=== PATIENT | male | born 1950 | race Caucasian/White ===

== ENCOUNTER 2019-04-18 16:25 | Inpatient (IN) | payer MEDICARE ==
[~2019-04-18] VITALS: Ht 172.7 cm; Wt 125.2 kg
[2019-04-18] MEDS ORDERED: TYLENOL325 MG PO (16:27)
[2019-04-18] MEDS ORDERED: AMLODIPINE BESY10 MG PO (16:28)
[2019-04-18] MEDS ORDERED: LIPITOR 20 MG T20 M1 PO (16:28)
[2019-04-18] MEDS ORDERED: B12INJ IM (16:29)
[2019-04-18] MEDS ORDERED: CARVEDILOL12.5 MG PO (16:29)
[2019-04-18] MEDS ORDERED: TRULICITY1.5 MG/0.5 SQ (16:30)
[2019-04-18] MEDS ORDERED: IRON325 PO (16:31)
[2019-04-18] MEDS ORDERED: LANTUS100 UNIT/M SUBQ (16:32)
[2019-04-18] MEDS ORDERED: HUMALOG100 UNIT/1 SUBQ (16:33)
[2019-04-18] MEDS ORDERED: MAGNESIUM CITRATE PO (16:50)
[2019-04-18] MEDS ORDERED: FISH OIL 1,001000 M2 PO (16:51)
[2019-04-18] MEDS ORDERED: MELATONIN3 MG PO (16:51)
[2019-04-18] MEDS ORDERED: MIRALAX17 GM PO (16:52)
[2019-04-18] MEDS ORDERED: VITAMIN D5000 UNIT PO (16:53)
[2019-04-18 18:53] VITALS: BP 157/79
[2019-04-18 19:30] VITALS: BP 157/67
[2019-04-18 19:30] LABS: URINE BILIRUBIN NEGATIVE (Negative); URINE BLOOD TRACE (Negative); URINE CLARITY CLEAR; URINE COLOR YELLOW; URINE GLUCOSE-RANDOM TRACE (Negative); URINE KETONES NEGATIVE (Negative); URINE LEUKOCYTES NEGATIVE (Negative); URINE NITRITE NEGATIVE (Negative); URINE PROTEIN 3+ (Negative); URINE SPECIFIC GRAVITY 1.025 (1.005-1.030); URINE UROBILINOGEN 0.2 E.U./dl (0.2-1.0)
[2019-04-18 19:43] LABS: BACTERIA 1-9 Few /HPF (None Seen); CASTS None Seen /LPF (None Seen); CRYSTALS None Seen /LPF (None Seen); SQUAMOUS 0-3 Few /LPF (0-3); URINE RBC 0-2 Rare /HPF (0-2); URINE WBC 0-5 Rare /HPF (0-5)
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
--- NOTE | 2019-04-19 04:02 | NUR ---
REFUSED LAB DRAW DESPITE EDUCATION FROM HELPER TEACHER.
--- NOTE | 2019-04-19 04:59 | NUR ---
PATIENT ATTEMPTING TO PUT ON SHOES IN ORDER TO EXIT. STATES FAMILY IS GOING TO COME GET HIM. THIS NURSE CALLED THE NUMBER FOR RUTHANN TWICE AND THERE WAS NO ANSWER. VM LEFT WITH MINIMAL DETAILS DUE TO HIPAA, BUT REQUESTED HIM TO CALL ME.
--- NOTE | 2019-04-19 05:09 | NUR ---
FURTHER ATTEMPTS AT CALLING RUTHANN AT [phone] RESULT IN ANSWERING MACHINE. SUPV NOTIFIED. SECURITY CALLED AND WILL VISIT WITH PATIENT. CURRENTLY THERE IS REVENUE CYCLE ADMINISTRATOR WITH PATIENT IN ROOM ASSURING SAFETY. UNTIL A FEW MINUTES AGO, PATIENT WAS RESTING IN RECLINER. NO APPARENT DISTRESS.
--- NOTE | 2019-04-19 05:13 | NUR ---
SECURITY HERE AND TALKING WITH PATIENT.
--- NOTE | 2019-04-19 05:21 | NUR ---
STILL NO ANSWER AT RUTHANN'S NUMBER. CALLED , NO ANSWER, LEFT VOICE MAIL. BOOK AGENT IN WITH PATIENT ALONG WITH SECURITY. PATIENT HAS SUCCESSFULLY PUT ON HIS SHOES. WANTS TO GO HOME. HAS BEEN CALLING FAMILY WHILE SECURITY IN ROOM, AND THEY HAVE NOT BEEN ANSWERING PATIENT'S PHONE CALLS. REFUSES TO ALLOW GAIT BELT. BEING DISRESPECTFUL TO NURSING AND POLICE/SECURITY. PATIENT NOT ORIENTED TO SURROUNDINGS. DOES NOT REMEMBER EARLIER EVENTS OF SHIFT INCLUDING MULTIPLE ATTEMTPS AT EDUCATING HIM ON REHAB ROUTINE AND SAFETY CONCERNS. BOOK AGENT REMAINS IN ROOM.
--- NOTE | 2019-04-19 05:30 | NUR ---
SECURITY LEFT ROOM. OFFICER BENJAMIN REPORTS THAT PATIENT REALIZES THAT NO FAMILY MEMBERS ARE ANSWERING PHONE, AND HE THEREFORE DOES NOT HAVE A RIDE HOME. CLOSE OBSERVATION CONTINUES. PATIENT CONTINUES TO MAKE PHONE CALLS AFTER SECURITY LEFT. CALL LITE IN REACH.
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
--- NOTE | 2019-04-19 06:45 | NUR ---
A FAMILY MEMBER CALLED NURSE STATION BECAUSE PATIENT LEFT VOICE MAIL THAT PATIENT WAS WALKING OUT OF THE HOSPITL. THIS FAMILY MEMBER WANTED TO CONFIRM THAT PATIENT WAS STILL IN HOSPITAL AND NOT WALKING OUT OF IT. THIS CONFIRMED TO FAMILY MEMBER. WHILE ON PHONE WITH HIM, TERA CALLED NURSE STATION. UPDATE GIVEN TO HER. HE HAS BEEN LEAVING ON HER PHONE WELL OTHER FAMILY MEMBER'S PHONES. SHE STATES SHE WILL BE COMING UP TODAY SOON SHE CAN GET READY. SHE STATES THAT NONI WILL BE COMING. HOWEVER, PATIENT'S HAD TROUBLE LISTING HER NAME AND NEEDED CUEING TO REMEMBER IT, SHE IS VERY UPSET. SHE STATES THAT SHE WILL NOT BE DRIVING, BUT NONI ([phone]) WILL BE DRIVING HER. PATIENT INFORMED THAT HIS WILL BE COMING. SECURITY CAME TO CHECK ON PATIENT. CLOSE SUPERVISION CONTINUES.
[2019-04-19 08:00] VITALS: BP 159/69
[2019-04-19 09:17] LABS: HEMATOCRIT 35.7 % (42.0-52.0); HEMOGLOBIN 12.2 gm/dL (14.0-18.0); MCHC 34.2 g/dL (28.0-37.0); MPV 9.9 fl. (7.2-11.1); RBC 4.2 mil/uL (4.50-6.00); RDW-CV 13.3 % (10.5-14.5); WBC 6.8 thou/uL (4.0-11.0)
[2019-04-19 09:31] LABS: CALCIUM 8.9 mg/dL (8.5-10.1); CREATININE 2.7 mg/dL (0.6-1.3)
--- NOTE | 2019-04-19 17:13 | NUR ---
ASSUMMED CARE OF PT AT 0730, PT ALERT, ORIENTED TO SELF AND DATE, PT STATING HE WANTS TO GO HOME, PT UNDER CLOSE OBSERVATION, ALARMS ON, HERE AT 0800, PT CALMED AFTER HER, NO FURTHER TALK ABOUT LEAVING, PT TOOK THE "IMPORTANT PILLS" BLOOD PRESSURE MEDS, INSULIN GIVEN WITHOUT PROBLEM, PT HAS COMPLAINED OF BACK PAIN, MEDICATED PER ORDER, LIDOCAINE PATCH APPLIED TO LOW BACK, DISCUSSED NIGHT BEHAVIOR WITH DR HERNANDEZ AND WILL ASK FAMILY IF THEY CAN GIVE 24/7 SUPERVSION WITH PT, AGREEABLE TO STAYING TONIGHT WITH PT, AND WILL HAVE FAMILY MEMBERS STAY WITH HIM TOMMORROW, PT NOT TRACKING WITH SOME INSTRUCTIONS AT TIMES, NEEDS CUEING, PT TRANSFERS WITH SBA/MIN ASSIST GB AND WALKER, AMBULATES TO BATHROOM TO VOID, TAKING FOOD AND FLUIDS WELL, PARTICPATED IN ALL THERAPIES, FAMILY STATES PT HAS TAKEN XANAX IN THE PAST, DR HERNANDEZ CALLED AND ORDER OBTAINED FOR XANAX PRN IF NEEDED. HOURLY ROUNDING COMPLETED, ASSESSMENT COMPLETE, WILL CONTINUE TO MONITOR.
[2019-04-19 19:30] VITALS: BP 167/78
--- NOTE | 2019-04-20 00:09 | NUR ---
ASSUMED CARE AT 1930. PATIENT RESTING IN RECLINER WITH LEGS DEPENDENT DESPITE EDUCATION. STATES PUTTING LEGS HURTS HIS HIPS. LIDOCAINE PATCH REMOVED AT HS. STAYING THE NIGHT AND SHE IS VERY HELPFUL IN CUEING THE PATIENT TO REMEMBER TO USE THE CALL LITE. SHE IS ALSO GOOD AT REMEMBERING WHEN HE LAST HAD PAIN MEDS. DR. HERNANDEZ CHANGED XANAX ORDER IN LIGHT OF RENAL CONCERNS, NOW Q12 HOURS. PATIENT INFORMED AND UNDERSTANDS. DID GO TO BED ABOUT 2300. TWO SIDE RAILS UP BECAUSE HE STATED HE FELT TRAPPED IN THE BED. ALSO TOLERATING FEET ON PILLOW TO OFFLOAD HEELS, FEET UNCOVERED FROM THE TOPSHEETS. REFUSED TO ALLOW THIS NURSE TO ASSESS HIS LEGS, HAS SWEAT PANTS AND GRIPPER SOCKS OVER THEM. TAKES PILLS ONE AT A TIME WITH WATER. IN MUCH, MUCH BETTER HUMOR THIS EVENING. 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 STATES HER TEJAS CHENEY WILL SPEND THE DAY WITH HIM. MEDICATED FOR BACK PAIN WITH APAP. ABLE TO GET BOTH LEGS INTO BED WITHOUT ASSIST. HOURLY ROUNDS CONTINUE. BED ALARM ON. CALL LITE IN REACH.
--- NOTE | 2019-04-20 06:18 | NUR ---
SLEPT ALL NIGHT EXCEPT TO VOID. WAS CONTINENT AND VOIDED PER TOILET TWICE. WAS INCONTINENT ONCE, NEEDING CHANGE OF CLOTHING, AND CHUX. PATIENT ABLE TO PUSH OFF PANTS/UNDERWEAR AND REMOVE WET SHIRT. HOWEVER, WOULD NOT COOPERATE WITH REQUEST TO SIT DOWN TO REMOVE PANTS, INSTEAD INSISTING JUST KICKING THEM OFF. THIS NURSE ASSISTED WITH THAT. SKIN CARE DONE BY PATIENT AND THIS NURSE DID POSTERIOR SKIN CARE FROM WHERE URINE WAS ON HIS BACK (HAD BEEN LYING ON HIS BACK) CLOTHES CHANGED, ASSISTED WITH GATHERING CLOTHES. RETURNED TO BED. LEGS REMAIN ELEVATED ON PILLOWS TO OFFLOAD HEELS. NO FURTHER C/O PAIN. REMAINS SPENDING THE NIGHT. HOURLY ROUNDS CONTINUE. BED ALARM ON. CALL LITE IN REACH.
[2019-04-20 08:00] VITALS: BP 168/92
[2019-04-20 09:08] LABS: ABSOLUTE EOSINOPHILS 0.2 thou/uL (0.0-0.7); ABSOLUTE LYMPHOCYTES 1.4 thou/uL (0.8-5.3); ABSOLUTE MONOCYTES 0.6 thou/uL (0.0-1.2); ABSOLUTE NEUTROPHILS 4.5 thou/uL (1.6-8.1); BASOPHILS 0.5 %; EOSINOPHILS 2.3 %; LYMPHOCYTES 21.2 %; MCHC 34.2 g/dL (28.0-37.0); MCV 84.8 fL (80.0-100.0); MONOCYTES 8.4 %; MPV 9.4 fl. (7.2-11.1); NUCLEATED RBCS 0 /100WBC; PLATELET COUNT* 183 thou/uL (150-400); POLYS 67.6 %; RBC 4.13 mil/uL (4.50-6.00); RDW-CV 13.1 % (10.5-14.5); WBC 6.7 thou/uL (4.0-11.0)
[2019-04-20 09:14] LABS: CALCIUM 8.7 mg/dL (8.5-10.1); CREATININE 2.7 mg/dL (0.6-1.3); POTASSIUM 4.5 mmol/L (3.5-5.1)
--- NOTE | 2019-04-20 17:10 | NUR ---
ASSUMMED CARE OF PT AT 0730, PT TRANSFERS WITH SBA/MIN ASSIST , GB WALKER AND FREQUENT CUEING, PT COMPLAINS OF BACK AND LEG PAIN BUT DENIES NEED FOR PAIN MEDICATION, LIDOCAINE PATCH APPLIED TO LOW BACK, TAKING FOOD AND FLUIDS WELL, PT AMBULATES TO BATHROOM TO VOID, HAS SLOW SHUFFLING GAIT, BILATERAL LOWER EXTREMITIES SWOLLEN, RED, THICK SCALY SKIN, 2 OPEN AREAS NOTED ON LEGS, LARGER ONE TO LEFT LEG BELOW KNEE AND SMALLER OPEN AREA ON RIGHT LEG BELOW KNEE, LEGS TENDER TO TOUCH, BROUGHT IN A MOISTURIZER SPRAY, APPLIED TO LOWER EXTREMITIES, FEET SWOLLEN, LEGS ELEVATED ON PILLOWS IN RECLINER, PT COOPERATIVE ALL SHIFT, FAMILY HERE AND WILL STAY TONIGHT, HOURLY ROUNDING COMPLETED, ASSESSMENT COMPLETE WILL CONTINUE TO MONITOR.
[2019-04-20 19:00] VITALS: BP 143/60
--- NOTE | 2019-04-20 23:00 | NUR ---
ASSUMED CARE AT 1930. PATIENT RESTING IN RECLINER WITH LEGS UP SOME OF THE TIME. UP WITH SBA, CUEING, EXTRA TIME, GAIT BELT, WALKER. TAKES SMALL STEPS. WEARING BRIEF, VOIDING PER TOILET. CHANGED OUT OF STREET CLOTHES FOR HS, WEARING GOWN AND BRIEF. DOES HAVE TROUBLE ROLLING TO SIDE AND LYING > SITTING POSITION WHILE IN BED, NEEDS EXTRA TIME. TOOK PILLS WITHOUT DIFF. COOPERATIVE AND CONVERSIVE, A/O X4. MEDICATED FOR PAIN AT . DISCUSSED HOW LONG IT WOULD HAVE TAKEN FOR THE GABAPENTIN AND OTHER MEDICINES GIVEN AT [facility] TO CLEAR SYSTEM BASED ON POOR RENAL FUNCTION AND THE HALF LIFE OF THE MEDS. VERBALIZED UNDERSTANDING. HOURLY ROUNDS CONTINUE. BED ALARM ON. CALL LITE IN REACH.
--- NOTE | 2019-04-21 05:23 | NUR ---
SLEPT MOST OF THE NIGHT. SPENT SOME TIME IN BED, BUT MOST OF THE NIGHT THE RECLINER. REFUSES TO HAVE LEGS ELEVATED WHILE IN RECLINER DESPITE EDUCATION THAT HIS CIRCULATION/VENOUS STASIS DERMATITIS WOULD IMPROVED WITH ELEVATION. STATES ELEVATING LEGS MAKES HIPS AND BACK HURT. SPENT THE NIGHT. PATIENT COOPERATIVE. DOES NEED REASSURANCE AT TIMES, HELPFUL WITH THAT. HOURLY ROUNDS CONTINUE. BED ALARM ON. CALL LITE IN REACH.
[2019-04-21 05:39] LABS: HEMATOCRIT 33.8 % (42.0-52.0); HEMOGLOBIN 11.5 gm/dL (14.0-18.0)
[2019-04-21 05:51] LABS: ALBUMIN 2.9 g/dL (3.4-5.0); CREATININE 2.6 mg/dL (0.6-1.3); PHOSPHORUS* 4.3 mg/dL (2.5-4.9); POTASSIUM 4.5 mmol/L (3.5-5.1)
--- NOTE | 2019-04-21 06:57 | NUR ---
HAS SPENT THE NIGHT, BUT SHE IS LEAVING AROUND 0700. SHE PLANS ON SPENDING THE NIGHTS WITH THE PATIENT TO HELP WITH HIS BEHAVIOR.
[2019-04-21 08:30] VITALS: BP 153/72
--- NOTE | 2019-04-21 11:06 | NUR ---
Nutrition: Pt admitted to rehab with bilat peripheral edema. Wt: 270#. CHO controlled diet ordered, eating 75%. BG 146-200s, alb 2.9, BUN 36, cr 2.6. RX: fish oil, insulin, B12, Fe. GOALS: better BG control with insulin. No other nutrition interventions today. Will follow weekly. Mild risk.
--- NOTE | 2019-04-21 15:10 | NUR ---
ASSUMED CARE AT 0730. ALERT TO SELF BUT IRRITABLE WITH SPOUSE AT TIMES. FORGETFUL ALSO. HX OF BILATERAL PERIPHERAL NEUROPATHY AND DERMATITIS LOWER EXTREMETIES. TRANSFERS WITH SBA G BELT WALKER AMBULATES WITH SLOW GAIT TO BR WEARS PULLUPS FOR INCONTINENCE. ABLE TO FEED SELF AND TAKES MEDS WITHOUT DIFFICULTY. REFUSED VITAMIN B 12 IM WILL ASK FOR PO B12. PT. WAS IRRITABLE MORE THIS A.M. WITH , ADMINISTERED ALPRAZALOAM PO AT 0917. PT. HAS BEEN COOPERATIVE WITH STAFF AND THERAPIES TODAY. BED CHAIR ALARM ON FOR PT. SAFETY. IS HERE AND ANOTHER FEMALE WHO IS A WRIST CLOSER AT ANOTHER FACILITY. DID C/O PAIN LOW BACK WHEN IN RECLINER PILLOW PLACED BEHIND HIM. TRAMADOL PO GIVEN FOR PAIN WITH SOME RELIEF STATED.
--- NOTE | 2019-04-21 17:35 | NUR ---
SW met with pt and pt son's girlfriend to complete initial assessment, introduce self, and SW role. Pt lives at home with . Possible preference for [facility] at dc if pt/pt agree as pt son's girlfriend knowledgeable and works with [facility] services. Pt discussed difficulty with pt understanding of inpt rehab and agreeing and complying with continuing to remain on ARU. Nurses' notes describe pt interactions with trying to leave unit to go home. Pt said that she would try to stay with pt when she could and she brought pt dog to visit pt today. Pt unsure of pt dc needs at this time but very receptive to any resources and/or assistance. SW to continue to follow to assist with safe dc planning.
--- NOTE | 2019-04-21 18:10 | NUR ---
WOUND NURSE: PATIENT SEEN FOR PERIPHERAL EDEMA 2ND TO VENOUS INSUFFICIENCY AND LYMPHEDEMA. PATIENT HAS 2 PRIMARY WOUNDS ON THE LLE: 1.8 X 2.5 X 0.1 CM. PRESENTS A SHALLOW PARTIAL THICKNESS LESION DRAINING SEROUS DRAINAGE. RLE WOUND MEASURES 0.5 X 0.5 X 0.2 CM AND PESENTS A PARTIAL THICKNESS LESION CONTAINING PINK TISSUE AND SEROUS DRAINAGE. LEGS HAVE 3 TO 4 PLUS EDEMA AND ARE REDDENED WITH HYPERPIGMENTATION AND LIPODERMATOSCLOROSIS. PEDAL PULSES ARE PALPABLE. ATTEMPTED YOLIS'S TO BLE, BUT PATIENT IS NONCOMPRESSIBLE. CAPILLARY REFILL IS <3 SECONDS AND TOES ARE WARM AND PINK. CLEANSED WITH SOAP AND WATER, RINSED WITH WATER, THEN PATTED DRY. APPLIED MOISTURIZING LOTION TO INTACT SKIN, THEN APPLIED XEROFORM GAUZE UNDER ABD TO WOUNDS, THEN WRAPPED WITH MEDLINE 4 LAYER COMPRESSION WRAP BLE.
--- NOTE | 2019-04-21 19:55 | NUR ---
SITTING UP IN RECLINER WITH LEGS ELEVATED WATCHING TV. STAYS WITH PATIENT. DENIES DISCOMFORT. TOOK MEDICATIONS WHOLE ONE AT A TIME WITH WATER.
[2019-04-21 20:40] VITALS: BP 145/71
--- NOTE | 2019-04-22 05:41 | NUR ---
RESTED IN BED FROM ABOUT 2345 TO 0450 THEN DECIDED TO SIT IN THE RECLINER WITH LEGS ELEVATED. UP SEVERAL TIMES DURING THE NIGHT TO VOID. STANDS AT THE TOILET TO VOID. ABLE TO PULL PULL UPS AND PANTS UP AND DOWN. INCONTINENT AT TIMES. HOURLY ROUNDING IN PROGRESS.
[2019-04-22 08:00] VITALS: BP 153/69
--- NOTE | 2019-04-22 15:56 | NUR ---
ASSUMMED CARE OF PT AT 0730, PT ALERT, CONFUSION AND FORGETFUL, TRANSFERS WITH ASSIST OF 1, GB WALKER, CUEING, AMBULATES TO BATHROOM TO VOID,UA SENT TO LAB, PASSING FLATUS, NO BM, PT DID AGREE TO TAKE STOOL SOFTENER THIS AM BUT FEARFUL HE WILL HAVE DIARHEA, PT AMBULATED TO DININGROOM FOR LUNCH, TAKING FOOD AND FLUIDS WELL, STATES ONLY HAS MINIMAL PAIN IN LOW BACK, DENIED NEED FOR PAIN MEDICATION, LIDOCAINE PATCH APPLIED, PARTICIPATED IN ALL THERAPIES, HOURLY ROUNDING COMPLETED, ASSESSMENT COMPLETE, WILL CONTINUE TO MONITOR.
[2019-04-22 17:13] LABS: URINE BILIRUBIN NEGATIVE (Negative); URINE BLOOD TRACE (Negative); URINE CLARITY CLEAR; URINE COLOR YELLOW; URINE GLUCOSE-RANDOM TRACE (Negative); URINE KETONES NEGATIVE (Negative); URINE LEUKOCYTES NEGATIVE (Negative); URINE NITRITE NEGATIVE (Negative); URINE PROTEIN 3+ (Negative); URINE UROBILINOGEN 0.2 E.U./dl (0.2-1.0)
[2019-04-22 17:30] LABS: HYALINE CASTS 0-3 Few /LPF (None Seen); SQUAMOUS NONE SEEN /LPF (0-3)
[2019-04-22 17:31] LABS: CRYSTALS None Seen /LPF (None Seen); MUCUS None Seen strn/LPF (None Seen); URINE RBC 0-2 Rare /HPF (0-2)
[2019-04-22 17:32] LABS: BACTERIA None Seen /HPF (None Seen); URINE WBC None Seen /HPF (0-5)
[2019-04-22 19:30] VITALS: BP 136/60
--- NOTE | 2019-04-22 20:30 | NUR ---
ASLEEP IN RECLINER WITH LEGS ELEVATED. AWAKENED FOR HS REASSESSMENT AND MEDICATION PASS. TOOK MEDS WHOLE ONE AT A TIME WITH WATER. DENIES DISCOMFORT.
--- NOTE | 2019-04-23 04:48 | NUR ---
RESTED ON/OFF. UP OFTEN TO THE TOILET TO VOID. WENT TO BED ABOUT 2230 BUT WAS UNABLE TO GET COMFORTABLE SO SPENT THE NIGHT IN THE RECLINER WITH LEGS ELEVATED. SLEPT ON FOLD OUT COUCH. GAVE TYLENOL PER CHOICE FOR COMPLAINT OF PAIN IN HIS FEET WITH RELIEF. HOURLY ROUNDING IN PROGRESS.
[2019-04-23 08:34] LABS: CALCIUM 8.7 mg/dL (8.5-10.1); CREATININE 2.6 mg/dL (0.6-1.3); POTASSIUM 4.4 mmol/L (3.5-5.1)
[2019-04-23 08:41] VITALS: BP 169/84
--- NOTE | 2019-04-23 15:05 | NUR ---
ABBI and Dr Mccoy met with pt and pt to review team conference summary and plan for pt to remain on rehab unit with pt to continue therapies and team to reassess pt length of stay during team conference next Sunday. Pt and pt okay with plan. SW to continue to follow to assist with safe dc planning.
--- NOTE | 2019-04-23 16:41 | NUR ---
PATIENT ALERT AND ORIENTED X 4. SOME CONFUSION AT TIMES. WOUND CARE HERE AND CHANGED LE DRESSINGS FOR CELLULITIS. UP WITH GAITBELT AND WALKER. SOME LEG PAIN. TYLENOL EARLIER IN SHIFT. NO FURTHER COMPLAINTS OF PAIN OR DISCOMFORT. CONT. WITH PLAN OF CARE.
--- NOTE | 2019-04-23 16:45 | NUR ---
WOUND NURSE- PATIENT SITTING UP IN RECLINER, HAS COMPLETED THERAPY FOR THE DAY. AT BEDSIDE, VERY SUPPORTIVE. PATIENT ALERT BUT VERY FORGETFUL, KEEPS ASKING SAME QUESTIONS. ATTEMPTED TO EXPLAIN VENOUS INSUFFICIENCY AND ONGOING MANAGEMENT, WITH SOME APPARENT COMPREHENSION. RIGHT FOOT 24.5 CM, ANKLE 25.5 CM & CALF 44.5 CM. LEFT FOOT 24 CM, ANKLE 26 CM & CALF 43 CM. BOTH LEGS CLEANSED WELL WITH SKIN CLEANSER & WATER IN BASINS OF WATER AT FEET, REMOVING LARGE AMOUNT OF LOOSELY ADHERENT DRY SKIN WITH CLEANSING. SMALL OPEN AREAS ON RIGHT LATERAL CALF 0.5 X 0.5 X 0.1 CM AND LEFT MEDIAL CALF, 3 X 0.6 X 0.1 CM. BOTH AREAS PINK, MOIST AND HEALING WELL, WITH NO SIGNS OF INFECTION. OPEN AREAS COVERED WITH XEROFORM GAUZE, AND 4 LAYER COMPRESSION WRAPS REAPPLIED. INSTRUCTED PATIENT AND THAT IF THE WRAPS WOULD START TO FEEL TIGHT, HE NEEDS TO RECLINE IN BED WITH BOTH LEGS ELEVATED ON 2 PILLOWS. IF UNRELIVED, OR TOES BECOME COOL, BLUE OR NUMB/TINGLING, NOTIFY NURSE TO REMOVE WRAPS. THEY VERBALIZE UNDERSTANDING.
[2019-04-23 19:00] VITALS: BP 150/64
--- NOTE | 2019-04-24 00:50 | NUR ---
ASSUMED CARE @ .SITS IN RECLINER W/ LE'S UP.CLOVER WRAP LE'S INTACT. DOG VISITING @ THIS TIME. STAYING ALL NIGHT.CHAIR ALARM ON ALREADY @ .IS STARTED @ 2124.SBA FOR ALL TRANSFERS & TOILETING.ASSISTED TO BED @ 2319.BED ALARM PUT ON @ 2319.WANTS ONLY SIDERAILS X2 UP.WANTS LIGHT ON BATHROOM ALL NIGHT.WEARS PULL UPS.ON HOURLY ROUNDS.TURNING SANDER OPERATOR DOING ODD HOUR ROUNDS. WANTS TO SIT IN RECLINER @ 0030 W/ LE'S UP.ASSISTED BY TURNING SANDER OPERATOR.
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
[2019-04-24 08:00] VITALS: BP 147/69
--- NOTE | 2019-04-24 13:57 | NUR ---
PATIENT ALERT AND ORIENTED X 4, FORGETFUL AT TIMES. PARTICIPATING IN THERAPY. REQUESTED TRAMADOL FOR LEG PAIN. SBA WITH GAITBELT AND ROLLING WALKER. NO FURTHER COMPLAINTS. CONT. WITH CURRENT PLAN OF CARE.
[2019-04-24 20:05] VITALS: BP 166/83
--- NOTE | 2019-04-24 20:05 | NUR ---
SITTING UP IN RECLINER WATCHING TV. DENIES DISCOMFORT. IN ROOM WITH PATIENT AND WILL BE STAYING THE NIGHT ON A COT. CALL LIGHT WITHIN REACH.
[2019-04-25 04:57] LABS: CALCIUM 8.9 mg/dL (8.5-10.1); CREATININE 2.5 mg/dL (0.6-1.3); POTASSIUM 4.4 mmol/L (3.5-5.1)
--- NOTE | 2019-04-25 05:03 | NUR ---
UP X 3 DURING THE NIGHT TO VOID. AMBULATES TO THE BATHROOM WITH SBA, GAITBELT, WALKER. GAVE TYLENOL FOR COMPLAINT OF PAIN IN HIS FEET WITH RELIEF. TRIED TO SLEEP IN THE BED BUT COULDN'T GET COMFORTABLE SO SLEPT MOST OF THE NIGHT IN THE RECLINER. HOURLY ROUNDING IN PROGRESS.
[2019-04-25 07:45] VITALS: BP 156/70
--- NOTE | 2019-04-25 13:54 | NUR ---
ASSUMED CARE AT 0730. ALERT ORIENTED PLEASANT COOPERATIVE. HX OF BILATERAL PERIPHERAL EDEMA AND DERMATITS. WEARING BILATERAL COMPRESSION WRAPS TO LOWER EXTREMETIES. TRANSFERS WITH SBA G BELT WALKER AND AMBULATES TO BR TO VOID AND ALSO TO DR FOR MEALS. USES CALL LIGHT APPROPRIATELY FOR ASSISTANCE. CHAIR ALARM FOR PT. SAFETY. HERE WITH PT. DENIES NEED FOR LIDODERM PATCH FOR PAIN, HAD AN ULTRAM AT 0700. HAS BEEN A LITTLE SLEEPY AFTER ULTRAM. FEEDS SELF AND TAKES MEDS ONE AT A TIME WITHOUT DIFFICULTY. PARTCIPATING IN THERAPIES THROUGHOUT THE DAY. WOUND NURSE HERE TO CHANGE COMPRESSION WRAPS THIS AFTERNOON. SITTING UP IN RECLINER WITH LEGS ELEVATED WHEN NOT IN THERAPIES.
--- NOTE | 2019-04-25 14:33 | NUR ---
WOUND NURSE: PATIENT SEEN FOR BLE REWRAP FOR EDEMA CONTROL. REMOVED DRESSINGS AND CLEANSED WITH SOAP AND WATER, RINSED WITH WATER, THEN PATTED DRY. APPLIED MOISTURIZING LOTION TO INTACT SKIN TOES TO KNEE. APPLIED XEROFORM GAUZE TO ANY OPEN AREAS 1 ON RIGHT AND 2 ON LEFT LE. COVERED WITH ABD, THEN WRAPPED WITH MEDLINE 4 LAYER COMPRESSION WRAPS TOES TO KNEE. PATIENT WITH SMALL PATCH OF SKIN ON PROXIMAL ANTERIOR LEG MEASURING 3.5 X 4.0 X 0.1 CM. THIS CONTAINS >90% SKIN AND < 10% SUPERFICIAL RUPTURED BLISTERED AREA. THERE IS A SMALL AMOUNT OF SEROUS DRAINAGE, NO REDNESS, WARMTH OR INDURATION. THERE IS ANOTHER WOUND ON THE LEFT ANTEROLATERAL PROXMAL LEG WHICH MEASURES 0.3 X 0.3 X 0.1 CM AND CONTAINS PINK NONGRANULATING TISSUE. THERE IS A 2ND ONE ON THE LEFT LEG AT PROXIMAL ANTEROMEDIAL ASPECT AND MEASURES 1.5 X 1.5 X 0.1 CM. THIS ALSO CONTAINS PINK TISSUE BUT SLIGHTLY GRANULATED IN APPEARANCE. PATIENT IS WITHOUT COMPLAINTS OF PAIN OR DISCOMFORT AND PEDAL PULSE ARE PALPABLE. REINFORCED THE IMPORTANCE OF FOLLOW UP IN LYMPHEDEMA CLINIC OR FOR LONG-TERM MANAGEMENT OF PERIPHERAL EDEMA.
[2019-04-25 20:05] VITALS: BP 173/83
[2019-04-25 22:35] VITALS: BP 151/67
--- NOTE | 2019-04-26 01:40 | NUR ---
ASSUMED CARE @ 1946-04/25-SUNDAY.SITS IN RECLINER W/ LE'S UP WATCHING TV W/ .CHAIR ALARM ALREADY ON @ 1946. COMPRESSION WRAPS ON LE'S IN PLACE. WEARS PULL UPS.BP @ 2004-/83.NEW MED CARDURA 2 MG ORAL STARTED @ HS. EDEMA-TOES MILLI. 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
[2019-04-26 04:50] LABS: HEMATOCRIT 29.5 % (42.0-52.0); HEMOGLOBIN 9.8 gm/dL (14.0-18.0); MCH 28.4 pg (26.0-34.0); MCHC 33.4 g/dL (28.0-37.0); MCV 85.3 fL (80.0-100.0); MPV 9.8 fl. (7.2-11.1); RBC 3.46 mil/uL (4.50-6.00); RDW-CV 13.5 % (10.5-14.5); WBC 5.5 thou/uL (4.0-11.0)
[2019-04-26 05:10] LABS: CALCIUM 8.7 mg/dL (8.5-10.1); CREATININE 2.5 mg/dL (0.6-1.3); POTASSIUM 4.6 mmol/L (3.5-5.1)
--- NOTE | 2019-04-26 05:49 | NUR ---
SLEEPING SINCE -04/26-SAT TILL 0130,FROM 0200 TO 0400 & FROM 0500.DID NOT SLEEP IN BED @ ALL.BRP W/ SBA X5.PULL UPS CHANGED @ 0420.SEE 2ND PAIN MANAGEMENT @ 0440.TOOK POPCORN & H20 HS SNACKS.
[2019-04-26 10:34] VITALS: BP 149/71
--- NOTE | 2019-04-26 13:48 | NUR ---
PATIENT ALERT AND ORIENTED X 4, WITH CONFUSION AND FORGETFULNESS. SPENDS MOST OF THE TIME WITH PATIENT. IT IS NOTED THAT WHEN LEAVES FOR A SHORT PERIOD OF TIME, PATIENT BECOMES MORE CONFUSED. PATIENT AMBULATING WITH THERAPY WITHOUT THE WALKER, BUT IS TO USE WITH NURSING. PATIENT FREQUENTLY FORGETS WALKER OR TO ASK FOR HELP WITH AMBULATION. WILL CONT. TO MONITOR. IS HERE NOW. PATIENT HAD A MEDIUM BM THIS AM.
[2019-04-26 19:45] VITALS: BP 154/75
--- NOTE | 2019-04-27 01:41 | NUR ---
ASSUMED CARE @ 1939-04/26-SAT.SITS IN RECLINER W/ LE'S UP.PATIENT & BOTH WATCHING TV. STAYING ALL NIGHT.CHAIR ALARM ON @ 1939.COMPRESSION WRAPS LE'S INTACT.WEARS PULL UPS.SEE PAIN MANAGEMENT @ 2125.REBEL CARE DONE X1.ON HOURLY ROUNDS.
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
--- NOTE | 2019-04-27 05:33 | NUR ---
NURSE'S NOTES ENTERED @ 4873-ARE END OF SHIFT PROGRESS NOTES.
[2019-04-27 07:35] VITALS: BP 145/73
--- NOTE | 2019-04-27 13:03 | NUR ---
PATIENT ALERT AND ORIENTED X 3, WITH SOME CONFUSION AT TIMES. FORGETFUL. AT BEDSIDE. PATIENT AMBULATES WITH ROLLING WALKER, SBA. DENIES COMPLAINTS OF PAIN OR DISCOMFORT. NO SIGN OF DISTRESS. CONT. WITH CURRENT PLAN OF CARE AT THIS TIME.
[2019-04-27 20:35] VITALS: BP 164/77
--- NOTE | 2019-04-28 00:15 | NUR ---
ASSUMED CARE @ 1919-04/27-SUNDAY.SITS IN RECLINER W/ LE'S UP.CHAIR ALARM ALREADY ON @ 1919.VISITING W/ FRIENDS @ THIS TIME.SEE PAIN MANAGEMENT @ 2058.C/O NASAL CONGESTION.CALLED DR HERNANDEZ @ 2041 & GAVE ORDER FOR PRN FLONASE NASAL SPRAY.FLONASE NASAL SPRAY GIVEN ONE SPRAY EACH NOSTRIL @ 2143. STAYING ALL NIGHT.WANTS TO GO TO BED @ 2214 & ASSISTED.CALLED @ 2246 TO PRACTICE HOW TO GET UP FROM BED X2.BED ALARM PUT ON @ 2214.EACH LE UP ON A PILLOW WHILE IN BED.SIDERAILS X2 UP WHILE IN BED-UPPER SIDERAILS ONLY.APPEARS SLEEPING IN BED @ -04/28-SUNDAY.ON HOURLY ROUNDS.
--- NOTE | 2019-04-28 05:34 | NUR ---
REFUSED HS SNACK.PER -PATIENT ATE PIZZA @ DINNER & DOES NOT NEED HS SNACKS.BRP W/ SBA X 8 DURING NIGHT.URINE ACCIDENT X1.WET SMALL AREA FRONT SHIRT LOWER PART W/ URINE BUT REFUSED TO CHANGE SHIRT.WEARS PULL UPS.ASSISTED TO BED @ 0000-04/28-SUNDAY.STAYED IN BED X 0NLY 50 MINUTES.THEN SAT IN RECLINER W/ LE'S UP.OFFERED BLADDER SCAN @ 0215 BUT REFUSED IT.SLEPT X 30 MINUTES FROM 0000 TO 0030,FROM 0335 TO 0445 & FROM 0500.
[2019-04-28 07:45] VITALS: BP 153/78
--- NOTE | 2019-04-28 13:13 | NUR ---
ASSUMED CARE AT 0730. ALERT ORIENTED PLEASANT COOPERATIVE. HX OF BILATERAL PERIPHERAL EDEMA AND DERMATITS. WEARS BILATERAL COMPRESSION WRAPS TO LOWER EXTREMETIES. TRANSFERS WITH SBA G BELT WALKER AND AMBULATES TO BR TO VOID AND IS ABLE TO DO HYGEINE AND CLOTHING ADJUSTMENTS. USES CALL LIGHT APPROPRIATELY FOR ASSISTANCE. FEEDS SELF AND TAKES MEDS WITHOUT DIFFICULTY APPETITE GOOD. PARTICIPATING IN THERAPIES THROUGHOUT THE DAY. DENIES NEED FOR PAIN MED. SITTING IN RECLINER WITH BLES ELEVATED.
[2019-04-28 20:00] VITALS: BP 174/74
--- NOTE | 2019-04-28 20:03 | NUR ---
WOUND NURSE: WOUNDS ARE HEALED. LEGS CLEANSED WITH SOAP AND WATER, RINSED, THEN PATTED DRY. APPLIED LOTION TO INTACT SKIN, THEN WRAPPED BLE WITH 4 LAYER COMPRESSION WRAPS FOR EDEMA CONTROL. THIS WAS TOLERATED WELL FOR THE PATIENT. PLAN TO HAVE WOUND NURSE HERE WED TO OBTAIN LEG MEASUREMENTS FOR COMPREFLEX LITES AND GIVE TO SO SHE CAN OBTAIN THEM. WILL D/C COMPRESSION WRAPS ONCE THESE ARE AVAILABLE.
--- NOTE | 2019-04-28 20:05 | NUR ---
AMEYA, WOUND CARE NURSE JUST FINISHED PUTTING NEW COMPRESSION WRAPPINGS ON LEGS. PATIENT AMBULATED TO THE BATHROOM WITH SBA, GAITBELT, WALKER. STANDS AT THE TOILET TO VOID. TOOK MEDICATIONS WHOLE ONE AT A TIME WITH WATER. CALL LIGHT WITHIN REACH. LAYING IN PATIENT'S BED WATCHING TV. PATIENT SITS UP IN THE RECLINER WITH LEGS ELEVATED.
--- NOTE | 2019-04-29 05:17 | NUR ---
UP X 4 DURING THE NIGHT TO THE BATHROOM TO VOID. GAVE ULTRAM AT 2222 PER REQUEST FOR COMPLAINT OF BACK PAIN WITH RELIEF. SLEPT IN RECLINER ALL NIGHT WITH LEGS ELEVATED. SLEPT ON A COT NEXT TO THE RECLINER. HOURLY ROUNDING IN PROGRESS.
[2019-04-29 07:35] VITALS: BP 171/80
--- NOTE | 2019-04-29 11:37 | NUR ---
SW met with pt in preparation for team conference tomorrow. Pt hopeful to be able to dc home soon. SW called pt to follow up about dc planning and to discuss any questions or comments; pt did not answer so SW left a detailed message to request a call back if needed in further preparation for team conference tomorrow. SW to continue to follow to assist with safe dc planning.
--- NOTE | 2019-04-29 13:01 | NUR ---
WOUND CARE:SPOKE TO PTS NURSE TODAY TO INFORM HER WOUND CARE WOULD CHANGE DRESSINGS ON SUN AND WE COULD PROVIDE MEASUREMENTS FOR COMPREFLEX LITE DRESSINGS.
--- NOTE | 2019-04-29 13:25 | NUR ---
ASSUMED CARE AT 0730. ALERT ORIENTED PLEASANT COOPERATIVE. HX OF BILATERAL PERIPHERAL EDEMA AND DERMATITIS LOWER EXTREMETIES.WEARS COMPRESSION WRAPS PER WOUND CARE NURSE SKIN HEALED BUT CONTINUE WRAPS FOR EDEMA. PARTICIPATING IN THERAPIES THROUGHOUT THE DAY. USING CALL LIGHT APPROPRIATELY FOR ASSISTANCE. AMBULATES WITH SBA G BELT WALKER TO BR AND TO DR FOR MEALS. DENIES PAIN OR CONCERNS. VOIDS FREQUENTLY IN TOILET ABLE TO DO HYGEINE AND CLOTHING ADJUSTMENTS. APPETITE GOOD FEEDS SELF AND TAKES MEDS WITHOUT DIFFICULTY. SITTING UP IN RECLINER WHEN NOT IN THERAPIES.
[2019-04-29 19:17] VITALS: BP 185/80
--- NOTE | 2019-04-29 20:25 | NUR ---
SITTING UP IN RECLINER WITH LEGS ELEVATED. IN PATIENT'S BED WATCHING JUAQUIN'S GOT TALENT. TYLENOL GIVEN PER PATIENT'S REQUEST FOR COMPLAINT OF A SORE NECK.
[2019-04-30 04:14] LABS: HEMATOCRIT 28.9 % (42.0-52.0); HEMOGLOBIN 9.8 gm/dL (14.0-18.0); MCH 29.1 pg (26.0-34.0); MCHC 33.9 g/dL (28.0-37.0); MCV 85.8 fL (80.0-100.0); MPV 9.7 fl. (7.2-11.1); RBC 3.37 mil/uL (4.50-6.00); WBC 5.1 thou/uL (4.0-11.0)
[2019-04-30 04:40] LABS: CALCIUM 8.9 mg/dL (8.5-10.1); CREATININE 2.5 mg/dL (0.6-1.3); POTASSIUM 4.1 mmol/L (3.5-5.1)
--- NOTE | 2019-04-30 05:49 | NUR ---
GAVE FLONASE AND ULTRAM AT 2230 FOR COMPLAINT OF PAIN IN NECK AND BACK WITH GOOD RESULTS. RESTED QUIETLY AFTERWARDS. UP X ONE DURING THE NIGHT TO THE BATHROOM TO VOID. ANDERS PARNELL IS COMING TODAY TO MEASURE PATIENT'S LEGS FOR LEG GARMENTS SO PATIENT'S COMPRESSION WRAPS CAN BE DISCONTINUED AFTER PATIENT'S OBTAINS THE GARMENTS. HOURLY ROUNDING IN PROGRESS.
[2019-04-30 07:00] VITALS: BP 165/82
--- NOTE | 2019-04-30 14:02 | NUR ---
ABBI and Dr Mccoy met with pt and pt to review team conference summary and plan for pt to remain on rehab unit one more week and reteam with dc next Sunday after team 05/07. Pt was questioning of decision and reasoning for need for continued therapies and ABBI and Dr Mccoy explained pt goals and areas of need for improvement to be able to dc more independent with tasks. Pt and pt in agreement with plan. Team recommending family training prior to dc and HH services to follow. SW to continue to follow to assist with safe dc planning.
--- NOTE | 2019-04-30 17:55 | NUR ---
AM ASSESSMENT AND VITAL SIGNS COMPLETED DOCUMENTED. PT HAS BEEN PLEASANT AND COOPERATIVE, ASKS APPROPRIATE QUESTIONS REGARDING HIS THERAPY AND MEDICATIONS. PT HAS USED THE CALL LIGHT FOR ASSISTANCE TODAY. PRN TYLENOL GIVEN FOR C/O NECK/ BACK PAIN. FALL PRECAUTIONS AND HOURLY ROUNDING CONTINUE.
[2019-04-30 21:00] VITALS: BP 164/78
--- NOTE | 2019-05-01 00:28 | NUR ---
ASSUMED CARE @ 1944-.SMILING @ THIS TIME.WATCHING TV.LE'S UP.CHAIR ALARM ALREADY ON @ 1944.SITTING ON RECLINER. STAYING ALL NIGHT.DOES NOT WEAR PULL UPS NOW.SBA FOR ALL TRANSFERS & TOILETING.SEE PAIN MAnagement @ 2134.prn nasal spray 0NE SPRAY EACH NOSTRIL GIVEN @ 2134.ON HOURLY ROUNDS.
--- NOTE | 2019-05-01 05:33 | NUR ---
AWAKE MOST OF TIME DURING NIGHT.REQUESTED WARM PACK BACK OF NECK @ 0100 & RIGHT LOWER BACK @ 0420 W/ RELIEF.TOOK ALL TURKEY SANDWICH W/ ZERO CALORIE LEMONADE HS SNACKS.SLEEPING FROM 03 TO 0350.AWAKENED BY LAB FOR BLOOD DRAW @ 0350 & BECAME CONFUSED.WILL ASK HIMS DR TO ORDER BLOOD TO DRAW IN AM.BRP W/ SBA X7.SLEEPING 2ND TIME SINCE 0500.
[2019-05-01 08:00] VITALS: BP 152/75
--- NOTE | 2019-05-01 15:10 | NUR ---
WOUND NURSE: PATIENT'S COMPRESSION WRAPS ARE INTACT AND HE IS SCHEDULEDD FOR THERAPY WITH PT. PATIENT'S WOUNDS WERE HEALED ON 04/28, SO PLAN LEAVE WRAPS IN PLACE UNTIL TOMORROW, THEN REMOVE AND TAKE MEASUREMENTS SO CAN ORDER COMPRESSION GARMENTS, THEN REAPPLY TO CONTROLL EDEMA. STAFF NURSE TOM INFORMED OF THIS DECISION.
[2019-05-01 19:45] VITALS: BP 165/86
--- NOTE | 2019-05-02 01:19 | NUR ---
ASSUMED CARE @ 1924-05/01-.SITS IN RECLINER W/ LE'S UP.CHAIR ALARM ALREADY ON @ 1924.COMPORESSION WRAPS LE'S IN PLACE.SEE PAIN MANAGEMENTS @ 1936 & 49. STAYING ALL NIGHT.WARM MOIST PACK APPLIED TO LOWER BACK @ 1943.FLONASE NASAL SPRAY GIVEN @ 2099.HAS HESITANCY.K PAD APPLIED TO LOWER BACK @ 2224 & WANTS REMOVED @ 0100=05/02-SUNDAY.AMBULATED IN HALLWAY W/ SBA @ 0040 X 5 MIN. DOES NOT USE WALKER ANYMORE.GAIT-STEADY.ON HOURLY ROUNDS.SBA FOR ALL TRANSFERS & TOILETING.
--- NOTE | 2019-05-02 05:11 | NUR ---
REFUSED HS SNACK.GOT UP W/OUT CALLING X3.BRP W/ SBA X9 DURING NIGHT.PER PATIENT BRP X3 OR 4X ONLY @ HOME.REFUSED BLADDER SCAN @ 0415 WHEN OFFERED. SAT IN RECLINER ALL NIGHT.REFUSED TO GO TO BED.USED WALKER @ 0150 TO BE STABLE WHEN BRP.
--- NOTE | 2019-05-02 07:20 | NUR ---
SLEPT X 30 MINUTES @ 0200 & 0300.SLEEPING X 1 1/2 HOURS FROM 0430 TO 0600. SLEEPING FROM 0620 TO 0720.
[2019-05-02 09:30] VITALS: BP 149/77
--- NOTE | 2019-05-02 15:28 | NUR ---
PATIENT ALERT AND ORIENTED X 4, WITH PERIODS OF CONFUSION. REORIENTED WITH SUCCESS. DENIES COMPLAINTS OF PAIN OR DISCOMFORT. NO SIGN OF DISTRESS. LEFT BEDSIDE THIS AM. GOT UP X 1 TODAY WITHOUT CALLING. CHAIR ALARM SOUNDED.
--- NOTE | 2019-05-02 17:21 | NUR ---
WOUND NURSE: PATIENT'S LEGS REMAIN HEALED. MEASURED PATIENT'S LEGS FOR ACQUISITION OF COMPREFLEX LITES BY HIS . INSTRUCTED HER ON WHAT TO PURCHASE. MEASUREMENTS ARE FOLLOWS: RIGHT/LEFT: FOREFOOT: 25/24CM; ANKLE: 25/24CM; CALF: 42/43CM. TO OBTAIN MEDIUM BLACK REGULAR COMPREFLEX LITE COMPRESSION GARMENTS FOR BOTH LEGS.
[2019-05-02 20:30] VITALS: BP 158/78
--- NOTE | 2019-05-03 05:09 | NUR ---
ALERT AND ORIENTED. PLEASANT BUT CAN GET CONFUSED AT TIMES. STAYED OVERNIGHT. EARLY IN NIGHT PT RESTLESS. ASKED TO GET UP TO WALK X 3. HAD DIFFICULTY FALLING ASLEEP. PT REFUSED XANAX. TRAMADOL GIVEN. PT FINALLY SLEPT WELL AFTER MIDNIGHT. SLEPT IN RECLINER. MIN ASSIST WITH GAIT BELT. DID USE WALKER OVERNIGHT DUE TO WEAKNESS WITH GAIT. UP TO BATHROOM. CAN BE IMPULSIVE. CALL LIGHT IN REACH AND CHAIR ALARM ON.
[2019-05-03 08:00] VITALS: BP 164/84
--- NOTE | 2019-05-03 14:11 | NUR ---
ASSUMED CARE AT 0730. ALERT ORIENTED PLEASANT COOPERATIVE. HX OF BILATERAL PERIPHERAL EDEMA AND DERMATITIS. WEARING TUBIGRIPS BLES. SITTING UP IN RECLINER AT BEDSIDE WHEN NOT IN THERAPIES, AMBULATES TO BR TO VOID USES WALKER GAIT BELT FOR AMBULATION. DENIES PAIN OR CONCERNS. USES CALL LIGHT APPROPRIATELY FOR ASSIST. TO DR FOR MEALS. APPETITE GOOD FEEDS SELF AND TAKES MEDS WITHOUT DIFFICULTY. LEFT THIS A.M. WILL RETURN LATER AFTERNOON.
[2019-05-03 20:30] VITALS: BP 179/80
--- NOTE | 2019-05-04 05:56 | NUR ---
ALERT AND ORIENTED. CAN EASILY GET IRRITABLE. AT BEDSIDE. PT UNABLE TO GET COMFORTABLE TO SLEEP. SBA WITH GAIT BELT. UP TO BATHROOM MULTIPLE TIMES OVERNIGHT. BLE TUBIGRIPS OFF AT NIGHT. FLONASE GIVEN FOR NASAL CONGESTION. WALKED AROUND FLOOR X 1 DUE TO RESTLESSNESS. FINALLY ABLE TO SLEEP FOR SHORT PERIODS. CALL LIGHT IN REACH AND CHAIR ALARM ON.
[2019-05-04 07:30] VITALS: BP 190/89
--- NOTE | 2019-05-04 14:08 | NUR ---
ASSUMED CARE AT 0730. ALERT ORIENTED PLEASANT COOPERATIVE FORGETFUL AT TIMES. HX OF BILATERAL PERIPHERAL EDEMA AND DERMATITIS LOWER EXTREMETIES. WEARS TUBIGRIPS OFF AT HS. TRANSFERS WITH SBA G BELT AND AMBULATES TO BR VOIDS ABLE TO DO HYGEINE AND CLOTHING ADJUSTMENTS. USES CALL LIGHT APPROPRIATELY FOR ASSIST BUT FORGETS TO WAIT FOR STAFF AFTER TOILET USE. DENIES PAIN. WANTS TO GO HOME BUT WAS REDIRECTED BY STAFF. FEEDS SELF AND TAKES MEDS WITHOUT DIFFICULTY. DID HIS SHOWER INDEPENDENTLY WITH STAFF FOR SUPERVISION FOR SAFETY. LEFT AROUND NOON. SITTING IN RECLINER AT BEDSIDE.
--- NOTE | 2019-05-04 18:47 | NUR ---
PT. HAS AMBULATED WITH STAFF WITH G BELT AND AROUND THE SQUARE X 4 TODAY.
[2019-05-04 20:00] VITALS: BP 157/80
--- NOTE | 2019-05-05 05:19 | NUR ---
ALERT AND ORIENTED. C/O BACK AND ALL OVER SORENESS. PT TRYING TO DO MORE WALKING SO THAT HE CAN "GO HOME SOONER." PAIN MEDS GIVEN. BLE EDEMA WITH TUBIGRIPS REMOVED AT NIGHT. SLEPT IN RECLINER WITH LEGS UP. SBA WITH GAIT BELT ONLY. DID USE WALKER ONCE DUE TO WEAKNESS. UP TO BATHROOM SEVERAL TIMES OVERNIGHT. AT BEDSIDE. SLEPT BETTER AFTER MIDNIGHT. CALL LIGHT IN REACH AND CHAIR ALARM ON.
[2019-05-05 07:40] VITALS: BP 168/78
--- NOTE | 2019-05-05 13:53 | NUR ---
ASSUMED CARE AT 0730. ALERT ORIENTED PLEASANT COOPERATIVE. HX OF BILATERAL PERIPHERAL EDEMA AND DERMATITIS BLES. WEARS TUBIGRIPS BLES FOR EDEMA CONTROL. HAS AN INTACT BLISTER L LATERAL LEG. AMBULATING TO BR TO VOID FREQUENTLY ABLE TO DO CLOTHING ADJUSTMENTS. USES CALL LIGHT APPROPRIATELY FOR ASSIST BUT SOMETIMES COMES OUT OF TOILET AFTER USING CALL LIGHT TO CALL. DID HAVE SOME BACK PAIN LIDODERM PATCH APPLIED AFTER O.T. SESSION. FEEDS SELF APPETITE GOOD. TAKES MEDS WITHOUT DIFFICULTY. TO DR FOR MEALS.
--- NOTE | 2019-05-05 15:54 | NUR ---
PATIENTR SEEN TO FOLLOW UP AFTER CHANGE TO TUBIGRIPS. PATIENT DEVELOPED A SMALL BLISTER MEASURING 0.7 X 1.5 X 0.1 CM. HAS FIRM EDEMA IN BLE. PATIENT TO OBTAIN COMPREFLEX LITES TOMORROW. PLAN TO START THEM WHEN AVAILABLE. CLEANSED BLISTER WITH SALINE AND GAUZE, THEN COVERED WITH PETROLATUM GAUZE AND BORDERED FOAM DRESSING.
[2019-05-05 20:00] VITALS: BP 174/78
--- NOTE | 2019-05-06 06:17 | NUR ---
ALERT AND ORIENTED. PLEASANT. CAN BE FORGETFUL. TRAMADOL WAS GIVEN AT HS PER PT REQUEST. C/O BACK PAIN. BLE TUBIGRIPS IN PLACE AND PT ASK THAT THEY BE KEPT ON OVERNIGHT. SBA WITH GAIT BELT. UP TO BATHROOM SEVERAL TIMES OVERNIGHT. DOES OWN CARES. SLEPT IN RECLINER WITH LEGS UP. REMINDER TO USE CALL LIGHT. CHAIR ALARM ON.
[2019-05-06 08:00] VITALS: BP 165/71
--- NOTE | 2019-05-06 16:41 | NUR ---
ASSUMMED CARE OF PT AT 0730, TRANSFERS WITH SBA AND GB, GAIT WIDE BASED, FORGETFUL AT TIMES, VOIDS FREQUENTLY THRU OUT SHIFT IN BATHROOM, TUBIGRIPS OFF FOR CARES AND REAPPLIED, DRESSING CHANGED TO LEFT LE, PT COMPLAINS OF RIGHT LOWER BACK PAIN AND REQUESTED LIDOCAINE PATCH BE APPLIED, AMBULATED TO DININGROOM FOR LUNCH, TAKING FOOD AND FLUIDS WELL, PARTICIPATED IN ALL THERAPIES, HOURLY ROUNDING COMPLETED, ASSESSMENT COMPLETE, WILL CONTINUE TO MONITOR.
[2019-05-06 20:05] VITALS: BP 175/75; BP 176/75
--- NOTE | 2019-05-06 20:05 | NUR ---
AT SHIFT CHANGE HAD A MODERATE BM. AMBULATES TO THE BATHROOM WITH ANA, GAITBELUlices. DAY RN ASSISTED WITH REBEL CARE AFTER BM. WENT TO BATHROOM AGAIN AT 0 TO VOID. CALLED AT 1999 WANTING TO GO FOR A WALK. THEN AT 2004 CHANGED HIS MIND AND DECIDED TO SIT IN RECLINER WITH A WARM BLANKET PLACED ON HIS SORE NECK. JUST HAD TYLENOL AND DOESN'T WANT TO TAKE TRAMADOL UNTIL LATER. LAYING IN BED AND WATCHING JUAQUIN'S GOT TALENT. TOOK MEDS ONE AT A TIME WITH WATER. ANXIOUS, EASILY BECOMES IRRITABLE BUT CALMS DOWN FAIRLY EASILY, FUSSY. CALL LIGHT WITHIN REACH.
--- NOTE | 2019-05-07 05:36 | NUR ---
WENT FOR A WALK AROUND REHAB AND MED/SURG UNIT WITH JOSE PEREZ BEFORE GOING TO BED. SLEEPS IN RECLINER. SLEEPS ON COT NEXT TO RECLINER. RESTED POORLY. UP MULTIPLE TIMES TO THE BATHROOM TO VOID. IRRITABLE. SLEPT FOR ABOUT ONE AND A HALF HOURS AFTER RECEIVING TYLENOL AT 0345 FOR COMPLAINT OF A SORE NECK. HOURLY ROUNDING IN PROGRESS.
[2019-05-07 07:40] VITALS: BP 142/72
[2019-05-07 10:04] VITALS: BP 142/72
[2019-05-07] MEDS ORDERED: LIDOCAINE1 EACH TRANSDERM (12:41)
--- NOTE | 2019-05-07 12:46 | NUR ---
WOUND NURSE: PATIENT PROVIDED WITH 2 LAYER SIZE E TUBIGRIPS BLE AND WAS SCHEDULED IN [facility] FOR FOLLOW UP ON TU NEXT WEEK AT 10 AM. LLE BLISTER IS SMALL AND CARE PROVIDED BY STAFF NURSE WHO ALSO PICTURED THE WOUNDS. BLISTER MEASURED 0.5 X 1.0 X 0.1 CM. SMALL AMOUNT OF SEROUS DRAINAGE WAS NOTED.
[2019-05-07 13:08] VITALS: BP 142/72
--- NOTE | 2019-05-07 13:13 | NUR ---
ABBI and Dr Mccoy met with pt and pt after team conferences and confirmed with pt that pt is ready to dc today. Pt made great progress in therapies and is in agreement with safe dc plan. Pt to dc home today with pt . services to follow; pt and pt preference for home health is [facility]. [facility]BI faxed referral and orders to [facility]. [phone] fax [phone] No needs for DME and no other dc needs expressed.
--- NOTE | 2019-05-07 13:58 | NUR ---
PATIENT DISCHARGED TO HOME WITH AFTER TEAM CONFERENCE THIS AFTERNOON. PHOTOS TAKEN OF MILLI LE'S AND WOUND TO LEFT ANKLE PER PROTCOL AND REDRESSED. NEW TUBAGRIPS PLACED. PATIENT REMAINED UP WITH SBA AND GAIT BELT. PRN TYLENOL GIVEN X 1 FOR NECK PAIN. NO ADDITIONAL INSULIN REQUIRED WITH MEALS. PATIENT VERBALIZED UNDERSTANDING OF PAPERWORK AND SCRIPT. PATIENT TAKEN OUT VIA WHEELCHAIE WITH ALL BELONGINGS.
== END 2019-05-07 13:35 | disposition home health service (06) | DRG 73 ==
LOC: M.REH 16:25
PROVIDERS: Internal Medicine; Internal Medicine Nephrology; ADMIT Physical Medicine & Rehabilitation
DX: E11.42 Type 2 diabetes mellitus with diabetic polyneuropathy (principal); G93.41 Metabolic encephalopathy; N17.9 Acute kidney failure, unspecified; R53.81 Other malaise; N18.3 Chronic kidney disease, stage 3 (moderate); E11.22 Type 2 diabetes mellitus with diabetic chronic kidney disease; I12.9 Hypertensive chronic kidney disease with stage 1 through stage 4 chronic kidney disease, or unspecified chronic kidney disease; K21.9 Gastro-esophageal reflux disease without esophagitis; E78.5 Hyperlipidemia, unspecified; M19.90 Unspecified osteoarthritis, unspecified site; R26.9 Unspecified abnormalities of gait and mobility; R41.0 Disorientation, unspecified; K59.00 Constipation, unspecified; F03.90 Unspecified dementia, unspecified severity, without behavioral disturbance, psychotic disturbance, mood disturbance, and anxiety; M54.2 Cervicalgia; D64.9 Anemia, unspecified; M54.5 Low back pain; Z86.73 Personal history of transient ischemic attack (TIA), and cerebral infarction without residual deficits; Z85.828 Personal history of other malignant neoplasm of skin; Z90.49 Acquired absence of other specified parts of digestive tract; Z87.891 Personal history of nicotine dependence; Z79.4 Long term (current) use of insulin; Z79.899 Other long term (current) drug therapy; Z83.3 Family history of diabetes mellitus; Z82.49 Family history of ischemic heart disease and other diseases of the circulatory system; Z84.1 Family history of disorders of kidney and ureter

== ENCOUNTER → 2019-05-13 | Outpatient (CLI) | payer MEDICARE ==
[~2019-05-13] MED LIST: AMLODIPINE BESY10 MG PO; B12INJ IM; CARVEDILOL12.5 MG PO; FISH OIL 1,001000 M2 PO; HUMALOG100 UNIT/1 SUBQ; IRON325 PO; LANTUS100 UNIT/M SUBQ; LIDOCAINE1 EACH TRANSDERM; LIPITOR 20 MG T20 M1 PO; MAGNESIUM CITRATE PO; MELATONIN3 MG PO; MIRALAX17 GM PO; TRULICITY1.5 MG/0.5 SQ; TYLENOL325 MG PO; VITAMIN D5000 UNIT PO
== END ==
LOC: M.WC 05:15
DX: I89.0 Lymphedema, not elsewhere classified (principal); E11.42 Type 2 diabetes mellitus with diabetic polyneuropathy; E11.22 Type 2 diabetes mellitus with diabetic chronic kidney disease; I12.9 Hypertensive chronic kidney disease with stage 1 through stage 4 chronic kidney disease, or unspecified chronic kidney disease; N18.9 Chronic kidney disease, unspecified; F32.9 Major depressive disorder, single episode, unspecified; Z90.49 Acquired absence of other specified parts of digestive tract; Z79.4 Long term (current) use of insulin; Z87.891 Personal history of nicotine dependence